=== PATIENT | male | born 1965 | race Asian ===

== ENCOUNTER 2018-08-22 15:05 | Inpatient (IN) | payer OTHER ==
--- NOTE | 2018-08-22 15:17 | EDPHY ---
H & P <Claude Yu - Last Filed: 08/22/18 23:25> Stated Complaint: L hand -4 fingers pain no trauma Source: Patient, Family, Inspector Dials () Exam Limitations: Language barrier - Medical/Surgical History Hx Asthma: No Hx Chronic Respiratory Disease: No Hx Diabetes: No Hx Cardiac Disease: Yes Hx Renal Disease: No Hx Cirrhosis: No Hx Alcoholism: No Hx HIV/AIDS: No Hx Splenectomy or Spleen Trauma: No Other PMH: Heart valve surgery. CVA 2014 - Social History Smoking Status: Never smoked <Henny Lowery - Last Filed: 08/23/18 09:33> Time Seen by Provider: 08/22/18 15:16 HPI/ROS: HPI: This is a 53-year-old male who presents with Chief Complaint: L hand -4 fingers pain no trauma, left leg decreased range of motion Location: Left hand, left leg Quality: Decreased range of motion Duration: Several weeks Signs and Symptoms: No bleeding, + radiation, no numbness, no weakness, no tingling, no incontinence, + decreased range of motion, no swelling, + pain, no fever Timing: Severity: Context: Diagnosed with Parkinson's disease this year and is followed by neurologist at [facility], accompanied by who primarily translates, complains of 1 week history of left hand primarily the index, middle, ring and pinky finger pain that occurs intermittently and is nonradiating in nature. Denies any skin color changes, swelling, decreased range of motion. No trauma. After further questioning, They complain of 1 month history of progressive generalized weakness with poor appetite. Also Complains of left leg weakness which is chronic from a CVA but it has mildly progressed progressed for the last 11 months when he ambulates. Very difficult historian. Complains of mild nonradiating back pain. Denies change in urinary or bladder habits. Denies fever, dysuria, urinary hesitancy. Patient has a history of mechanical mitral valve replacement done in [facility], history of cerebrovascular accident with residual left-sided weakness, upper GI bleed secondary to small pre pyloric ulcer, acute blood-loss anemia. Given his stroke with with mechanical mitral valve he takes Coumadin and INR level was last checked 3 weeks ago. Denies any headaches, vision changes, chest pain, shortness of breath. Modifying Factors: None Comment: ROS: A comprehensive 10 system review of systems is otherwise negative aside from elements mentioned in the history of present illness. MEDICAL/SURGICAL/SOCIAL HISTORY: Medical history: CVA, Parkinson's disease Surgical history: Heart valve surgery Social history: Never smoked. CONSTITUTIONAL: Well-developed, well-nourished, adult male, at bedside, awake and alert, no obvious distress HEENT: Atraumatic and normocephalic, PERRL, EOMI. Nares patent; no rhinorrhea; no nasal mucosal edema. Tympanic membranes clear. Oropharynx clear, no exudate and moist pink mucosa. Airway patent. No lymphadenopathy. No meningismus. Cardiovascular: Normal S1/S2, regular rate, regular rhythm, without murmur rub or gallop. PULMONARY/CHEST: Symmetrical and nontender. Clear to auscultation bilaterally. Good air movement. No accessory muscle usage. ABDOMEN: Soft, nondistended, nontender, no rebound, no guarding, no peritoneal signs, no masses or organomegaly. No CVAT. EXTREMITIES: 2/2 pulses, bilateral human resources benefits coordinator strength 5/5, left hand no deformities , full range of motion of all fingers including DIP, PIP, MCP joints. No Ana's nodules. no clubbing, no cyanosis or edema. 1 patient ambulate NEUROLOGICAL: no focal neuro deficits. GCS 15. Ambulates with the left leg limp. Cranial nerves 2-12 grossly intact. Normal [id number]. SKIN: Warm and dry, no erythema. no rash. Good capillary refill. (Henny Lowery) Constitutional: Initial Vital Signs Temperature (C) 36.7 C 08/22/18 15:10 Heart Rate 65 08/22/18 15:10 Respiratory Rate 16 08/22/18 15:10 Blood Pressure 109/64 08/22/18 15:10 O2 Sat (%) 97 08/22/18 15:10 O2 Delivery Mode Room Air Allergies/Adverse Reactions: No Known Allergies Allergy (Verified 02/13/16 08:55) Home Medications: Medication Instructions Recorded Atorvastatin Calcium [Lipitor 40 40 mg PO DAILY #30 tab 07/16/14 mg (*)] Carbidopa/Levo Cr 50/200Mg 1 tab PO TID 08/22/18 [SINEMET CR 50/200 MG (*)] Trihexyphenidyl HCl 2 mg PO TID 08/22/18 Warfarin Sodium [Coumadin 5MG (*)] 7.5 mg PO DAILY@18 08/22/18 rOPINIRole HCL [Ropinirole HCl] 4 mg PO BID 08/22/18 Medical Decision Making - Diagnostics Imaging: Discussed imaging studies w/ crew caller Radiologist <Claude Yu - Last Filed: 08/22/18 23:25> <Henny Lowery - Last Filed: 08/23/18 09:33> ED Course/Re-evaluation: Vital signs reviewed and stable upon arrival. IV access, laboratory studies, urinalysis, head CT scan, MRI lumbar spine, MRI cervical spine, left hand x-ray ordered Patient will likely require admission for generalized weakness in the setting of Parkinson's disease. 1618: Laboratory studies reviewed. No signs of leukocytosis/anemia/platelet dysfunction/GRACIA/electrolyte imbalance. T bili and unconjugated bili mildly elevated. INR 3.89 1620: Left hand x-ray my read via PACs shows no fracture, dislocation, significant degenerative changes. 1707: Called by radiologist, Dr. Greenberg, who reports MRI lumbar spine shows no significant degenerative disc disease, herniation, facet hypertrophy stenosis. 1723: Called by radiologist, Dr. Pulido, who reports that head CT scan shows no acute intracranial process, mild atrophy seen. ED decision to consult hospitalist for generalized weakness, Parkinson's disease. Urine sample and results pending at time of consult. Dr. Dykes kindly agrees to admit patient and provide further care. Patient would benefit from PT and OT evaluations and possible placement. This patient was seen under the supervision of my secondary supervising physician. I evaluated care for this patient with attending. Discussed this patient with Dr. Yu. (Henny Lowery) Differential Diagnosis: Weakness including but not limited to electrolyte abnormality, depression, anxiety, CVA, spinal cord abnormality, and infectious causes. (Henny Lowery) Other Provider: PHYSICIAN DOCUMENTATION: The patient was evaluated and managed by the Physician General Production Worker and myself. I have reviewed the chart and agree with the findings and plan of care as documented. In addition, I examined the patient myself. History confirmed as from the as worsening dementia with poor memory, difficulty with gait, unsafe to be at home. Physical findings as follows: Patient has good human resources benefits coordinator strength bilaterally. He demonstrates pain in his ring middle and index finger on the left hand but does not have any swelling, has full flexion and extension in that hand. Multiple imaging studies reviewed. Patient has worsening Parkinson's disease and likely needs admission as his is no longer able to care form appropriately at home. Hospitalist admission, may need neurology consultation as an inpatient. I am the secondary supervising physician. (Claude Yu) - Data Points Laboratory Results: Laboratory Results 08/22/18 15:51 08/22/18 15:51 Medications Given: Acetaminophen (Tylenol) 1,000 mg PO Q8H SONDRA Stop: 02/18/19 18:59 Last Admin: 08/23/18 04:27 Dose: 1,000 mg Atorvastatin Calcium (Lipitor) 40 mg PO DAILY SONDRA Stop: 02/19/19 08:59 Last Admin: 08/23/18 08:48 Dose: 40 mg Carbidopa/Levodopa (Sinemet Cr 50/200) 1 tab PO TID SONDRA Stop: 02/18/19 21:59 Last Admin: 08/23/18 08:48 Dose: 1 tab Oxycodone HCl (Oxycodone Ir) 5 - 10 mg PO Q3H PRN PRN Reason: Pain, Severe Able to Take PO Stop: 09/01/18 21:18 Last Admin: 08/22/18 22:34 Dose: 5 mg Ropinirole HCl (Requip) 4 mg PO BID SONDRA Stop: 02/18/19 20:59 Last Admin: 08/23/18 08:46 Dose: 4 mg Tramadol HCl (Ultram) 50 mg PO Q6HRS PRN PRN Reason: Pain, Moderate Able to Take PO Stop: 02/18/19 18:52 Last Admin: 08/22/18 21:06 Dose: 50 mg Trihexyphenidyl HCl (Trihexyphenidyl Hcl) 2 mg PO TID SONDRA Stop: 02/18/19 21:59 Last Admin: 08/23/18 08:47 Dose: 2 mg Discontinued Medications Sodium Chloride (Ns) 1,000 mls @ 0 mls/hr IV ONCE ONE; Wide Open PRN Reason: Protocol Stop: 08/22/18 15:50 Last Admin: 08/22/18 16:17 Dose: 1,000 mls Sodium Chloride (Ns) 500 mls @ 250 mls/hr IV ONCE ONE Stop: 08/23/18 01:12 Last Admin: 08/22/18 23:48 Dose: 500 mls Departure <Claude Yu - Last Filed: 08/22/18 23:25> <Henny Lowery - Last Filed: 08/23/18 09:33> - Departure Disposition: [facility] Inpatient Acute Clinical Impression: Generalized weakness, History of CVA with residual deficit, Weakness of left lower extremity, Chronic anticoagulation, Parkinsons disease, Pain in left hand Condition: Fair
[2018-08-22] MEDS ORDERED: NS 1,000 ML IV ONE (15:49)
[2018-08-22 16:03] LABS: PLATELET COUNT 172 10^3/uL (150-400)
[2018-08-22 16:21] LABS: INR 3.89 (0.83-1.16); PROTIME(PATIENT) 36.1 SEC (12.0-15.0)
[2018-08-22] MEDS ORDERED: HYDROmorphONE/DILAUDID 1 MG/ML INJ IVP PRN (18:51)
[2018-08-22] MEDS ORDERED: ONDANSETRON 4 MG/2 ML VIAL IVP PRN (18:51)
[2018-08-22] MEDS ORDERED: ONDANSETRON DISINTEGRATING 4 MG TAB PO PRN (18:51)
--- NOTE | 2018-08-22 19:57 | PDGENHP ---
<Radha Romero - Last Filed: 08/22/18 20:19> History and Physical - Chief Complaint Hand pain, progressive weakness - History of Present Illness This is a 53-year-old male with new diagnosis in 2017 of Parkinson's with progressive weakness. Primary language is spanish. His primary care doctor is Dr. Peterson and he sees a neurologist at [facility]. is at bedside with the patient. He had a stroke in 2014 with left-sided residual. It was quite difficult to get a clear picture however the patient is presenting today in the emergency room due to a progressive weakness on his left side, pain at noted to his left pointer middle and ring finger as well as left lower extremity weakness that has worsened within the last 2 months. He does ambulate with a left limp He denied chest pain, shortness of breath, nausea, vomiting, fever or chills. Left hand x-ray reveals normal bone no arthropathy or lesion and a minimal soft tissue calcification, a lumbar spine MRI shows no lumbar disc herniations, compression fractures, central canal stenosis or neural foraminal stenosis and lastly a head CT showed no acute intracranial process. He is being admitted for treatment and monitoring. History Information - Allergies/Home Medication List Allergies/Adverse Reactions: No Known Allergies Allergy (Verified 02/13/16 08:55) Home Medications: Carbidopa/Levo Cr 50/200Mg [SINEMET CR 50/200 MG (*)] 1 tab PO TID 08/22/18 [ Last Taken Unknown] Trihexyphenidyl HCl 2 mg PO TID 08/22/18 [Last Taken Unknown] Warfarin Sodium [Coumadin 5MG (*)] 7.5 mg PO DAILY@18 08/22/18 [Last Taken 08/21] rOPINIRole HCL [Ropinirole HCl] 4 mg PO BID 08/22/18 [Last Taken Unknown] I have personally reviewed and updated: family history, medical history, social history, surgical history Past Medical History: Aortic valve defect, chronic anticoagulation, heart murmur , mitral valve disease with [place] chemical valve replaced in the [facility], stroke in 2014 and a gastric ulcer - Surgical History Additional surgical history: Mechanical valve replaced - Family History Additional family history: Cancer, heart disease - Social History Smoking Status: Never smoked Alcohol Use: None Drug Use: None Additional social history: 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 White blood count: 4.59 Hemoglobin hematocrit: 14.3 and 43.4 Platelet count: 172 Sodium: 135 Potassium: 4.2 Chloride: 104 Carbon dioxide: 25 BUN/Cr: 20/0.8 INR: 3.89, therapeutic range for patient is 2.5-3.5 TSH: 1.620 Hand x-ray, lumbar spine MRI, head CT without contrast: Temp Pulse Resp BP Pulse Ox 37.1 C 56 L 18 123/78 H 98 08/22/18 19:20 08/22/18 19:20 08/22/18 19:20 08/22/18 19:20 08/22/18 19:20 Constitutional: uncomfortable Eyes: PERRL, anicteric sclera, EOMI Ears, Nose, Mouth, Throat: moist mucous membranes, hearing normal, ears appear normal, no oral mucosal ulcers Cardiovascular: regular rate and rhythym, no murmur, rub, or gallop, No edema Peripheral Pulses: 2+: dorsalis-pedis (R), dorsalis-pedis (L) Respiratory: no respiratory distress, no rales or rhonchi, clear to auscultation Gastrointestinal: normoactive bowel sounds, soft, non-tender abdomen, no palpable masses Genitourinary: no bladder fullness, no bladder tenderness Skin: warm, normal color, no rashes or abrasions, no fluctuance, no induration, other (Bilateral lower extremities have scratch vanessa, per patient his legs are extremely itchy however they do not look dry), No mottled Musculoskeletal: generalized weakness Neurologic: AAOx3, sensation intact bilaterally, CN II-XII Intact Psychiatric: interacting appropriately, not anxious, not encephalopathic, thought process linear Lymph, Heme, Immunologic: no cervical LAD, no supraclavicular LAD Lab Data & Imaging Review 08/22/18 15:51 08/22/18 15:51 WBC 4.59 10^3/uL (3.80-9.50) 08/22/18 15:51 RBC 4.93 10^6/uL (4.40-6.38) 08/22/18 15:51 Hgb 14.3 g/dL (13.7-17.5) 08/22/18 15:51 Hct 43.4 % (40.0-51.0) 08/22/18 15:51 MCV 88.0 fL (81.5-99.8) 08/22/18 15:51 MCH 29.0 pg (27.9-34.1) 08/22/18 15:51 MCHC 32.9 g/dL (32.4-36.7) 08/22/18 15:51 RDW 15.3 % (11.5-15.2) H 08/22/18 15:51 Plt Count 172 10^3/uL (150-400) 08/22/18 15:51 MPV 10.6 fL (8.7-11.7) 08/22/18 15:51 Neut % (Auto) 60.4 % (39.3-74.2) 08/22/18 15:51 Lymph % (Auto) 26.1 % (15.0-45.0) 08/22/18 15:51 [place] % (Auto) 8.9 % (4.5-13.0) 08/22/18 15:51 Eos % (Auto) 3.5 % (0.6-7.6) 08/22/18 15:51 Baso % (Auto) 0.9 % (0.3-1.7) 08/22/18 15:51 Nucleat RBC Rel Count 0.0 % (0.0-0.2) 08/22/18 15:51 Absolute Neuts (auto) 2.77 10^3/uL (1.70-6.50) 08/22/18 15:51 Absolute Lymphs (auto) 1.20 10^3/uL (1.00-3.00) 08/22/18 15:51 Absolute Monos (auto) 0.41 10^3/uL (0.30-0.80) 08/22/18 15:51 Absolute Eos (auto) 0.16 10^3/uL (0.03-0.40) 08/22/18 15:51 Absolute Basos (auto) 0.04 10^3/uL (0.02-0.10) 08/22/18 15:51 Absolute Nucleated RBC 0.00 10^3/uL (0-0.01) 08/22/18 15:51 Immature Gran % 0.2 % (0.0-1.1) 08/22/18 15:51 Immature Gran # 0.01 10^3/uL (0.00-0.10) 08/22/18 15:51 PT 36.1 SEC (12.0-15.0) H 08/22/18 15:51 INR 3.89 (0.83-1.16) H 08/22/18 15:51 APTT 53.9 SEC (23.0-38.0) H 08/22/18 15:51 Sodium 135 mEq/L (135-145) 08/22/18 15:51 Potassium 4.2 mEq/L (3.5-5.2) 08/22/18 15:51 Chloride 104 mEq/L (97-110) 08/22/18 15:51 Carbon Dioxide 25 mEq/l (22-31) 08/22/18 15:51 Anion Gap 6 mEq/L (6-14) 08/22/18 15:51 BUN 20 mg/dL (7-23) 08/22/18 15:51 Creatinine 0.8 mg/dL (0.7-1.3) 08/22/18 15:51 Estimated GFR > 60 08/22/18 15:51 Glucose 101 mg/dL (70-100) H 08/22/18 15:51 Calcium 8.8 mg/dL (8.5-10.4) 08/22/18 15:51 Magnesium 1.9 mg/dL (1.6-2.3) 08/22/18 15:51 Total Bilirubin 2.4 mg/dL (0.1-1.4) H 08/22/18 15:51 Conjugated Bilirubin 0.2 mg/dL (0.0-0.5) 08/22/18 15:51 Unconjugated Bilirubin 2.2 mg/dL (0.0-1.1) H 08/22/18 15:51 AST 56 IU/L (17-59) 08/22/18 15:51 ALT 21 IU/L (21-72) 08/22/18 15:51 Alkaline Phosphatase 40 IU/L (38-126) 08/22/18 15:51 Total Protein 6.5 g/dL (6.3-8.2) 08/22/18 15:51 Albumin 3.9 g/dL (3.5-5.0) 08/22/18 15:51 TSH 1.620 uIU/mL (0.465-4.680) 08/22/18 15:51 Assessment & Plan Plan: This is a 53-year-old male who suffered a cerebral vascular accident in 2014 with left-sided residual weakness, newly diagnosed Parkinson's in 2017 and is medicated, and a mitral valve disease status post mechanical valve replaced while in [facility] and is anticoagulated with warfarin. His vital signs are the following: Blood pressure 123/78, heart rate 56, respiration 18, 98% on room air, 37.1 temperature #Chronic anticoagulation (Acute) #History of CVA with residual deficit (Acute) #Pain in left hand (Acute) #Parkinsons disease (Acute) #Weakness (Acute) #Weakness of left lower extremity (Acute) Plan: -Urinalysis pending -Physical therapy and occupational therapy to evaluate and treat patient -Check INR in the morning; therapeutic range for patient is 2.5-3.5, he is scheduled for warfarin tomorrow evening -Pain management p.o. p.r.n. -Continue home medications of atorvastatin, Sinemet, ropinirole, trihexyphenidyl Diet: Regular Code: Full VTE ppx: Warfarin, SCDs Dispo: Admit to inpatient, most likely needing rehabilitation after hospitalization <Kadie Dykes - Last Filed: 08/22/18 22:22> History and Physical - History of Present Illness Review of Systems Review of Systems: Physical Exam Physical Exam: Temp Pulse Resp BP Pulse Ox 37.1 C 56 L 18 123/78 H 98 08/22/18 19:20 08/22/18 19:20 08/22/18 19:20 08/22/18 19:20 08/22/18 19:20 Lab Data & Imaging Review 08/22/18 15:51 08/22/18 15:51 WBC 4.59 10^3/uL (3.80-9.50) 08/22/18 15:51 RBC 4.93 10^6/uL (4.40-6.38) 08/22/18 15:51 Hgb 14.3 g/dL (13.7-17.5) 08/22/18 15:51 Hct 43.4 % (40.0-51.0) 08/22/18 15:51 MCV 88.0 fL (81.5-99.8) 08/22/18 15:51 MCH 29.0 pg (27.9-34.1) 08/22/18 15:51 MCHC 32.9 g/dL (32.4-36.7) 08/22/18 15:51 RDW 15.3 % (11.5-15.2) H 08/22/18 15:51 Plt Count 172 10^3/uL (150-400) 08/22/18 15:51 MPV 10.6 fL (8.7-11.7) 08/22/18 15:51 Neut % (Auto) 60.4 % (39.3-74.2) 08/22/18 15:51 Lymph % (Auto) 26.1 % (15.0-45.0) 08/22/18 15:51 [place] % (Auto) 8.9 % (4.5-13.0) 08/22/18 15:51 Eos % (Auto) 3.5 % (0.6-7.6) 08/22/18 15:51 Baso % (Auto) 0.9 % (0.3-1.7) 08/22/18 15:51 Nucleat RBC Rel Count 0.0 % (0.0-0.2) 08/22/18 15:51 Absolute Neuts (auto) 2.77 10^3/uL (1.70-6.50) 08/22/18 15:51 Absolute Lymphs (auto) 1.20 10^3/uL (1.00-3.00) 08/22/18 15:51 Absolute Monos (auto) 0.41 10^3/uL (0.30-0.80) 08/22/18 15:51 Absolute Eos (auto) 0.16 10^3/uL (0.03-0.40) 08/22/18 15:51 Absolute Basos (auto) 0.04 10^3/uL (0.02-0.10) 08/22/18 15:51 Absolute Nucleated RBC 0.00 10^3/uL (0-0.01) 08/22/18 15:51 Immature Gran % 0.2 % (0.0-1.1) 08/22/18 15:51 Immature Gran # 0.01 10^3/uL (0.00-0.10) 08/22/18 15:51 PT 36.1 SEC (12.0-15.0) H 08/22/18 15:51 INR 3.89 (0.83-1.16) H 08/22/18 15:51 APTT 53.9 SEC (23.0-38.0) H 08/22/18 15:51 Sodium 135 mEq/L (135-145) 08/22/18 15:51 Potassium 4.2 mEq/L (3.5-5.2) 08/22/18 15:51 Chloride 104 mEq/L (97-110) 08/22/18 15:51 Carbon Dioxide 25 mEq/l (22-31) 08/22/18 15:51 Anion Gap 6 mEq/L (6-14) 08/22/18 15:51 BUN 20 mg/dL (7-23) 08/22/18 15:51 Creatinine 0.8 mg/dL (0.7-1.3) 08/22/18 15:51 Estimated GFR > 60 08/22/18 15:51 Glucose 101 mg/dL (70-100) H 08/22/18 15:51 Calcium 8.8 mg/dL (8.5-10.4) 08/22/18 15:51 Magnesium 1.9 mg/dL (1.6-2.3) 08/22/18 15:51 Total Bilirubin 2.4 mg/dL (0.1-1.4) H 08/22/18 15:51 Conjugated Bilirubin 0.2 mg/dL (0.0-0.5) 08/22/18 15:51 Unconjugated Bilirubin 2.2 mg/dL (0.0-1.1) H 08/22/18 15:51 AST 56 IU/L (17-59) 08/22/18 15:51 ALT 21 IU/L (21-72) 08/22/18 15:51 Alkaline Phosphatase 40 IU/L (38-126) 08/22/18 15:51 Total Protein 6.5 g/dL (6.3-8.2) 08/22/18 15:51 Albumin 3.9 g/dL (3.5-5.0) 08/22/18 15:51 TSH 1.620 uIU/mL (0.465-4.680) 08/22/18 15:51 Assessment & Plan Assessment: Chronic anticoagulation (Acute) History of CVA with residual deficit (Acute) Pain in left hand (Acute) Parkinsons disease (Acute) Weakness (Acute) Weakness of left lower extremity (Acute) Plan: Patient seen independently and care plan reviewed with MISAEL Romero, please see separate note for further details.
[2018-08-22] MEDS: ACETAMINOPHEN 325 MG TAB PO SCH (21:03)
[2018-08-22] MEDS: CARBIDOPA/LEVO CR 50 MG/200 MG TAB PO SCH (21:05)
[2018-08-22] MEDS: traMADol 50 MG TAB PO PRN (21:06)
[2018-08-22] MEDS: TRIHEXYPHENIDYL HCL 2 MG TAB PO SCH (21:06)
[2018-08-22] MEDS ORDERED: oxyCODONE IR 5 MG TAB PO PRN (21:19)
[2018-08-22] MEDS ORDERED: HYDROCODONE/APAP 5/325 TAB PO PRN (21:19)
--- NOTE | 2018-08-22 22:09 | HOSPPROG ---
Hospitalist Progress Note Assessment/Plan: 53 yo Cypriot speaking man with hx of Parkinson's disease followed at [facility] movement d/o neurology as well as prior CVA with residual left sided weakness, VHD s/p mechanical mitral and aortic valves also followed at [facility] for that presenting with various complaints including increased weakness particularly involving the left side, worsening pain in the left hand and concern that he is no longer safe at home. Patient also noted to be quite confused even with the help of lapeler and this does not appear to be at baseline. # progressive weakness/gait instability: reviewed [facility] Neuro reports, this has been an issue for some time it sounds like and has been felt to be due primarily to PD, component of chronic left sided weakness due to old CVA. Unclear that any of this is new reviewing old reports. Head CT negative, lumbar MRI performed also negative. Will get pt/ot to evaluate in am and will ask neuro to see in am as well. Will get brain MRI for further evaluation, per cardiology note "ok to have MRI with 1.5 Yvette magnet" # left hand pain: in review of neuro notes this has also been present for some time and attributed to dystonia related to PD, does seem to be progressive however. XRAy of the hand personally reviewed and unremarkable. above # PD: idiopathic, dx 2 years ago, some mention of consideration for DBS per neuro notes, continue op meds, seems to be progressive as above # toxic metabolic encephalopathy: per review of old notes does not appear that confusion has been present, however today patient stating he has been here in the hospital since yesterday, states he has not talked to any doctors or TOOL PROCUREMENT COORDINATOR's despite having spoken to at least 2 prior to myself. Will monitor, possibly some level of progressive dementia, will need further confirmation from family regarding baseline # VHD: [facility], currently on warfarin with goal of 2.5-3.5, slightly over goal, will ask pharmacy to manage # CVA: with residual left sided weakness particularly involving the LLE, as above, head ct negative, brain mri pending as above # hx of GI bleed/PUD # IP status, patient no longer safe to be at home independently, will need > 48 hours for eval/mgmt and consideration of placement Patient new to my care. Old records reviewed and summarized as above. Care plan reviewed with ER doctor and MISAEL Romero, please see her separate documentation for further details, patient interviewed with help of [facility] official court interpreter via official court interpreter line. Objective: Vital Signs Temp Pulse Resp BP Pulse Ox 37.1 C 56 L 18 123/78 H 98 08/22/18 19:20 08/22/18 19:20 08/22/18 19:20 08/22/18 19:20 08/22/18 19:20 08/21/18 08/22/18 08/23/18 05:59 05:59 05:59 Intake Total 1000 Balance 1000 PT 36.1 SEC (12.0-15.0) H 08/22/18 15:51 INR 3.89 (0.83-1.16) H 08/22/18 15:51 ICD10 Worksheet Patient Problems: Problems Problem Status Onset Chronic anticoagulation Acute History of CVA with residual deficit Acute Pain in left hand Acute Parkinsons disease Acute Weakness Acute Weakness of left lower extremity Acute CVA (cerebral infarction) Acute Gastrointestinal bleeding Acute Vertigo Acute
[2018-08-22] MEDS ORDERED: NS 500 ML IV ONE (23:13)
[2018-08-23] MEDS: ACETAMINOPHEN 325 MG TAB PO SCH ×3 (04:27→15:18)
[2018-08-23 05:40] LABS: INR 4.61 (0.83-1.16); PROTIME(PATIENT) 41.1 SEC (12.0-15.0)
--- NOTE | 2018-08-23 07:08 | HOSPPROG ---
Hospitalist Progress Note Assessment/Plan: Hospitalist Night Float Note Notified by RN that patient with development of bradycardia in to the 30s. Patient denies lightheadedness, chest pain, palpitations, SOB. telemetry and EKG obtained showing a 2nd degree AV Block mobitz type I with increasingly prolonged pauses. Patient will be transferred to SDU for closer monitoring, pacer pads. cardiology consult pending. Discussed plan with the patient via secondary education professor. He notes he is asymptomatic even going to the bathroom and is focused on addressing his upper and lower extremity weakness he presented with. Advised that it is still being evaluated but primary focus at very moment is to ensure stability of his heart. [facility] notified of transfer request. Objective: Vital Signs Temp Pulse Resp BP Pulse Ox 36.4 C 49 L 16 96/66 L 97 08/23/18 04:19 08/23/18 04:31 08/23/18 04:31 08/23/18 04:31 08/23/18 04:31 08/22/18 08/23/18 08/24/18 05:59 05:59 05:59 Intake Total 2000 Output Total 700 Balance 1300 PT 41.1 SEC (12.0-15.0) H 08/23/18 04:17 INR 4.61 (0.83-1.16) H 08/23/18 04:17 ICD10 Worksheet Patient Problems: Problems Problem Status Onset Chronic anticoagulation Acute History of CVA with residual deficit Acute Pain in left hand Acute Parkinsons disease Acute Weakness Acute Weakness of left lower extremity Acute CVA (cerebral infarction) Acute Gastrointestinal bleeding Acute Vertigo Acute
--- NOTE | 2018-08-23 08:31 | HOSPPROG ---
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 He was found to be bradycardic. #Bradycardia: Tele reveals 2nd degree mobitz type 1 with roughly 2 second pauses. Asymptomatic. No offending meds. - Check troponin, TTE - D/w cardiology who will see #Subjective weakness/gait instability: Not weak on my exam today, suspect r/t parkinson's. He complains of left leg weakness; his stroke was in left MCA territory in 2014 so this wound not explain symptoms. - MRI brain ordered (his valves are reportedly compatible) - Neurology consulted - PT/OT #Hand pain: No tenosynovitis on exam. X-ray unremarkable - Check ESR #H/o mechanical aortic and mitral valve replacements: Not in heart failure - INR supratherapeutic (goal 2.5-3.5), will hold today's dose, appreciate pharmacy assistance #Acute metabolic encephalopathy: Resolved this morning. #PD: Idiopathic, diagnosed 2 years ago. Some consideration for DBS per outpt neuro notes. Continue home meds. #CVA: Presented w/right sided sxs. Left MCA territory abnormality on CT, didn't have MRI. His symptoms resolved prior to hospital discharge per notes. - Continue statin. Previously on aspirin (in addition to AC) but developed GI bleed so this was stopped. #H/o GI bleed 2/2 PUD: H/H normal. VTE ppx: therapeutic anticoagulation Code: full Dispo: Remain inpatient Subjective: Left and right finger pain. Also reporting left leg weakness. No chest pain/tightness, dizziness, or syncope. helped translate. Objective: Vital Signs Temp Pulse Resp BP Pulse Ox 36.4 C 48 L 12 106/70 97 08/23/18 07:26 08/23/18 07:26 08/23/18 07:26 08/23/18 07:26 08/23/18 07:26 08/22/18 08/23/18 08/24/18 05:59 05:59 05:59 Intake Total 2000 Output Total 700 Balance 1300 PT 41.1 SEC (12.0-15.0) H 08/23/18 04:17 INR 4.61 (0.83-1.16) H 08/23/18 04:17 - Physical Exam Constitutional: no apparent distress, appears nourished, not in pain Eyes: PERRL, anicteric sclera, EOMI Ears, Nose, Mouth, Throat: moist mucous membranes, hearing normal, ears appear normal, no oral mucosal ulcers Cardiovascular: systolic murmur, bradycardia, No JVD, No edema Respiratory: no respiratory distress, no rales or rhonchi, clear to auscultation Gastrointestinal: normoactive bowel sounds, soft, non-tender abdomen, no palpable masses Genitourinary: no bladder fullness, no bladder tenderness, no renal bruits Skin: no rashes or abrasions, no fluctuance, no induration Musculoskeletal: full muscle strength, no muscle tenderness, normal joint ROM, other (no synovitis in either hand or wrist; difficulty grasping with left hand due to pain) Neurologic: AAOx3, CN II-XII Intact Psychiatric: interacting appropriately ICD10 Worksheet Patient Problems: Problems Problem Status Onset Chronic anticoagulation Acute History of CVA with residual deficit Acute Pain in left hand Acute Parkinsons disease Acute Weakness Acute Weakness of left lower extremity Acute CVA (cerebral infarction) Acute Gastrointestinal bleeding Acute Vertigo Acute
--- NOTE | 2018-08-23 08:42 | CPEKG ---
Test Reason : bradycardia Blood Pressure : / mmHG Vent. Rate : 047 BPM Atrial Rate : 047 BPM P-R Int : 368 ms QRS Dur : 098 ms QT Int : 473 ms P-R-T Axes : -71 009 043 degrees QTc Int : 419 ms Sinus or ectopic atrial bradycardia Prolonged WI interval Probable left ventricular hypertrophy ST elev, probable normal early repol pattern When compared with ECG of 02/13/2016 at 9:52 a.m. WI interval is longer. Slight change in P-wave mor phology. Heart rate slower. Confirmed by Gladys Leonardo ([id number]) on 08/23/2018 8:41:57 AM Referred By: Kadie Dykes Confirmed By:Gladys Leonardo
[2018-08-23] MEDS: TRIHEXYPHENIDYL HCL 2 MG TAB PO SCH ×3 (08:47→21:13)
[2018-08-23] MEDS: ATORVASTATIN CALCIUM 40 MG TAB PO SCH (08:48)
[2018-08-23] MEDS: CARBIDOPA/LEVO CR 50 MG/200 MG TAB PO SCH ×3 (08:48→21:13)
--- NOTE | 2018-08-23 09:50 | NEUROPROG ---
Assessment: [id number] - Neurology Consult: - CC: Dr. Dykes (hospitalist) consulted neurology for weakness. Results placed in EMR for her review. - HPI: 08/23/18: Pt from [facility] with PMHx of Parkinsons disease since 2016, valvular heart disease with mechanical valve on anticoagulation, and prior stroke in 2014 presented to [facility] ER on 08/22/18 complaining of left hand pain and a sense of slowly progressive left sided weakness for months. He has a movement disorder neurologist at [facility] that manages his neurologic conditions. He had a stroke in 2014 with residual left sided weakness. Pt reported for last 2 months he has noted progressive left sided weakness and left finger pain. Left hand x-ray normal, lumbar MRI unremarkable, and head CT unremarkable. Pt also noted to also possibly be confused at times although there is a language barrier complicating assessment. Hospitalist review of neurology movement disorder records find most of these complaints to likely be chronic. Pt also developed bradycardia so cardiology was consulted as well. Neurologic exam showed subtle left leg weakness and ataxia that pt reported was from prior stroke. Agree with plan to obtain brain MRI to ensure no acute changes. If no acute changes noted than continue current neurology medications, obtain PT/OT evaluation, and have pt continue to work with outpatient movement disorder neurologist as he is doing. - PMHx: Parkinsons Disease, valvular heart disease with mechanical valve on chronic anticoagulation with warfarin, stroke 2015, gastric ulcer - Home Meds: sinemet CR 50/200 TID, trihexyphenidyl, warfarin, ropinirole 4 mg bid , - SHx: no tobacco FHx: cancer, heart disease - ROS: Pt denied acute fever, total vision loss, active severe chest pain, respiratory failure, total body severe rash, total bowel/bladder incontinence, psychosis, active seizures, or active bleeding - O: VS reviewed General: Alert Eyes: Fundoscopic exam not able to visualize optic disks CV: Heart RRR, no murmur, no carotid bruit Lungs: Clear to auscultation bilaterally, no rhonchi or rales Neuro: - Mental: . Oriented x person/place/date . concentration appears normal . speech fluency/comprehension normal . memory appears normal . fund of knowledge appear intact - Cranial Nerves: . II: PERRL, VFFTC . III/IV/: EOMI, no nystagmus, normal smooth pursuits, no Ptosis . V: facial sensation intact to LT . VII: face symmetric to eye closure and smile . VIII: hearing intact to conversation . IX/X: uvula raises symmetrically . XI: SCM 5/5 B/L strength . XII: tongue protrudes midline w/nl strength - Motor: . Tone: normal tone in all 4 extremity . Strength: no pronator drift, strength 5/5 throughout but some slight left leg weakness was present - Reflexes: B/L bic 2/4 - Sensory: all 4 extremity intact to light touch but pt says left foot is slightly less due to prior stroke - Coord: slight ataxia in left leg likely due to underlying weakness - Gait: deferred - Labs: 08/22/18- CBC wnl, INR 3.89H PT 36.1H, CMP Gluc 101 Tot Bili 2.4 Unconj Bili 2.2H , TSH wnl - Rads: 08/22/18- Head CT wo: no acute intracranial process (I personally visualized the images on 08/23/18) 08/22/18- Lumbar MRI wo: No lumbar disk herniations, compression fractures, central canal stenosis, or neural foraminal stenosis. No significant degenerative changes. - Assessment: 1. Stroke in 2015 with residual left sided weakness 2. Valvular heart disease with mechanical valve on chronic anticoagulation 3. Parkinsons Disease since 2016: managed by movement disorder expert in [facility] 4. Left hand pain 5. Bradycardia: cardiology consulted 6. Possible Confusion: Likely due to underlying medical issues and language barrier, there does not appear to be any significant delirium present - Plan: - Agree with plan to obtain brain MRI wo, if no acute changes noted then recommend supportive care and f/u with outpatient movement disorder expert for continued care - PT/OT - If MRI shows no acute changes neurology will sign off Objective: Vital Signs Temp Pulse Resp BP Pulse Ox 36.4 C 48 L 12 106/70 97 08/23/18 07:26 08/23/18 07:26 08/23/18 07:26 08/23/18 07:26 08/23/18 07:26 Laboratory Results 08/23/18 08:43 08/22/18 08/23/18 08/24/18 05:59 05:59 05:59 Intake Total 2000 Output Total 700 Balance 1300 PT 41.1 SEC (12.0-15.0) H 08/23/18 04:17 INR 4.61 (0.83-1.16) H 08/23/18 04:17 Allergies/Adverse Reactions: No Known Allergies Allergy (Verified 02/13/16 08:55)
--- NOTE | 2018-08-23 11:30 | ASMTCMCOM ---
CM Note CM Note Notes: Reviewed chart, pt admitted to hospital for L hand and L leg weakness, previous hx of stroke. Recently diagnosed with Parkinsons. Pt lives at home with , dc needs uncertain, PT/OT to eval. DC Plan: TBD Date Signed: 08/23/2018 11:29 AM Electronically Signed By:Shantal Quintero RN
--- NOTE | 2018-08-23 13:01 | ECHO ---
[email or web address] [address] [address] Main: [phone] Echocardiography Examination Transthoracic Name: ALMA HUBBARD MR#: [id number] Study Date: 08/23/2018 Study Time: 11:54 AM Date of : 1965 Age: 53 year(s) Height: 152.4 cm (60 in.) Weight: 67.13 kg (148 lb.) BSA: 1.64 m2 Gender: Male Examination: Echo Contrast: Image Quality: Rhythm: Normal sinus rhythm Heart Rate: 51 bpm BP: 108 mmHg/72 mmHg Indication: Bradycardia, Hx of Mechanical Aortic and Mitral Valve Procedure Staff Referring Physician: Easement Man: Kyree Lawson RDCS Reading Physician: Ming Addison MD Requesting Provider: Ordering Physician: Julián Mike Indication: Bradycardia, Hx of Mechanical Aortic and Mitral Valve Measurements Chambers AV/MV Label Value Normal Value Label Value Normal Value LVOT Vmax 0.6 m/s (0.7m/s - 1.1m/s) AV PGmax 38 mmHg LVOTd 2.2 cm (1.9cm - 2.1cm) AV PGmean 23 mmHg LVOT VTI 17.2 cm (18cm - 22cm) AV Vmax 3.09 m/s LVDd, MM 4.2 cm (4.2cm - 5.9cm) WANG (Vmax) 0.7 cm2 LVDd, 2D 4.5 cm (4.2cm - 5.9cm) WANG (VTI) 0.9 cm2 LVDs, MM 2.5 cm (2cm - 3.8cm) MV E Vmax 1.6 m/s LVDs, 2D 3 cm (2.1cm - 4cm) MV A Vmax 0.88 m/s IVSd, MM 1.1 cm (0.6cm - 0.9cm) MV E/A 1.82 IVSd, 2D 0.9 cm (0.6cm - 1.1cm) MV E/E' lateral 41 LVPWd, MM 1.4 cm (0.6cm - 1cm) MV E/E' septal 42.1 (0.5 - 1.7) LVPWd, 2D 0.8 cm (0.6cm - 1cm) MV E' septal 0.04 m/s LVEF, 2D 60 % (54% - 74%) MV PGmax 10 mmHg LVOT PGmean 1 mmHg MV PGmean 3 mmHg LVOT Vmean 0.48 m/s MV PHT 0.8 s Additional Vessels MVA PHT 0.3 cm2 Label Value Normal Value MV E' lateral 0.04 m/s AoAsc 3.2 cm MV E/E' mean 40 AoRoot, MM 2.8 cm (2.2cm - 3.7cm) MV E' mean 0.04 m/s TV/PV Patient: ALMA HUBBARD Study Date: 08/23/2018 Page 1 of 3 11:54 AM Label Value Normal Value RA Pressure 5 mmHg RVSP 24 mmHg TR Pmax 19 mmHg TR Vmax 2.19 m/s PV PGmax 2 mmHg PV Vmax, Caliper 0.71 m/s (0.6m/s - 0.9m/s) Conclusions Left Ventricle: Left ventricle is normal in size. Normal global systolic left ventricular function. EF range is estimated at 70 % - 75 %. Right Ventricle: Right ventricular systolic function is normal. Mitral Valve: A tilting disc mechanical prosthesis is present in the mitral valve. The mitral valve prosthesis exhibits normal function. Aortic Valve: The aortic valve is a tilting disc prosthesis. Normal functioning aortic valve prosthesis. Tricuspid Valve: Right Ventricular systolic pressure is measured at 24 mmHg. Pulmonary artery pressure normal. Findings Left Ventricle: Left ventricle is normal in size. Normal global systolic left ventricular function. EF range is estimated at 70 % - 75 %. Left ventricle wall thickness is normal. Right Ventricle: Normal size right ventricle. Right ventricular systolic function is normal. Left Atrium: The left atrium is normal in size. Right Atrium: The right atrium is normal in size. Mitral Valve: A tilting disc mechanical prosthesis is present in the mitral valve. The mitral valve prosthesis exhibits normal function. No prosthesis stenosis. Aortic Valve: The aortic valve is a tilting disc prosthesis. Normal functioning aortic valve prosthesis. No prosthesis stenosis. Tricuspid Valve: Tricuspid valve leaflets are structurally normal. Trivial tricuspid regurgitation. Right Ventricular systolic pressure is measured at 24 mmHg. Pulmonary artery pressure normal. Pulmonic Valve: Pulmonic leaflets are normal in appearance and function. No pulmonic valve regurgitation is evident. Aorta: The aorta is normal. The aortic root size in M-mode measures 2.8 cm. The ascending aorta measures 3.2 cm. Aorta Measurements Patient: ALMA HUBBARD Study Date: 08/23/2018 Page 2 of 3 11:54 AM AoRoot, MM is 2.8 cm. Pericardium: The previous exam of from 02/14/16 indicated that the mechanical valves in the aortic and mitral positions were Luciano-Shivey type. If clinically indicated perform RUBEN to evaluate the mechanical valves.. No pericardial effusion. Exam Details Procedure Ordered: Echo (No Signature Object) Patient: ALMA HUBBARD Study Date: 08/23/2018 Page 3 of 3 11:54 AM [id number]
[2018-08-23] MEDS: traMADol 50 MG TAB PO PRN (16:41)
[2018-08-23] MEDS ORDERED: WARFARIN SODIUM 5 MG TAB PO SCH (18:00)
--- NOTE | 2018-08-23 18:34 | CPEKG ---
Test Reason : Blood Pressure : / mmHG Vent. Rate : 047 BPM Atrial Rate : 047 BPM P-R Int : 368 ms QRS Dur : 098 ms QT Int : 473 ms P-R-T Axes : -71 009 043 degrees QTc Int : 419 ms Sinus or ectopic atrial bradycardia Prolonged RI interval Probable left ventricular hypertrophy ST elev, probable normal early repol pattern Confirmed by Gladys Leonardo ([id number]) on 08/23/2018 6:33:30 PM Referred By: Kadie Dykes Confirmed By:Gladys Leonardo
--- NOTE | 2018-08-23 20:15 | GCON ---
[f rep st] CONSULTATION CARDIOLOGY CONSULTATION DATE OF CONSULTATION: 08/23/2018 PRIMARY CARE PHYSICIAN/CHIEF DIGITAL MEDIA OFFICER: Dr. Natalya Peterson. REASON FOR CONSULTATION: We were asked by Dr. Mike to evaluate the patient for his rhythm. HISTORY OF PRESENT ILLNESS: The patient is a 53-year-old male with a past medical history significan t for aortic and mitral valve replacement replacements with mechanical valves 22 years ago, CVA in , and new diagnosis of Parkinson's in 2016. He presents to [facility] with 2 weeks o f worsening weakness in his left hand and left lower extremity. He denies any chest pain, dyspnea, PND, orthopnea, palpitations, presyncope, syncope. MEDICATIONS: His outpatient medications include Sinemet, ropinirole, trihexyphenidyl, atorvastatin, and warfarin. ALLERGIES: No known drug allergies. SOCIAL HISTORY: Patient is a never smoker. Never drinker. He is . FAMILY HISTORY: Mother at age 73 and did have some heart disease. He has brothers and sisters who are in good health. PAST SURGICAL HISTORY: He had aortic and mitral valve replacements with mechanical valves. PAST MEDICAL HISTORY: 1. New diagnosis of Parkinson disease. 2. Valvular heart disease. 3. History of gastric ulcer. 4. History of CVA. REVIEW OF SYSTEMS: As per HPI. A complete 10-point review of systems was obtained and is negative e xcept for what is dictated. PHYSICAL EXAMINATION: VITAL SIGNS: BP of 100/70, heart rate of 55, respirations 21, O2 saturation 9 6% on room air, temp of 97.4 degrees Fahrenheit. GENERAL: He is a very pleasant male in no apparent distress. HEENT: Normocephalic, atraumatic. Eyes are without scleral icterus. HEART: Regular ra te and rhythm with crisp mechanical sounds and a 2 to 3/6 systolic ejection murmur. LUNGS: Clear. ABDOMEN: Soft. : No Bender. SKIN: Warm and dry. PSYCH: Normal mood and affect. NEURO: Appea rs to be oriented. We are assisted by gas load dispatcher via iPad. I have spoken to Dr. Mike about patient's care. LABORATORY DATA: CBC shows WBC 4.59, hemoglobin 14.3, hematocrit 43.4, platelet count 172. BMP was sodium 135, potassium 4.2, chloride 104, CO2 25, BUN 20, creatinine 0.8, glucose 101, TSH 1.6. A 12- lead ECG personally interpreted demonstrates sinus versus ectopic atrial bradycardia with a very prol onged AL interval, ST-elevation which is probably early repolarization. 08/23/2018 echocardiogram sh ows EF of 70% to 75% percent. There is a tilting disk mechanical prosthesis in the mitral valve posi tion with normal function. There is an aortic valve tilting disk prosthesis. RVSP is 24 mmHg. Tele metry was reviewed. IMPRESSION AND PLAN: The patient presents with weakness. He has been noted to have Mobitz type 1 bl ock on telemetry. He has no symptoms suggestive of angina. There are no identifiable medications th at would cause this. We will defer further testing at this time. We will follow along with patient' s telemetry. /[id number]/MODL
--- NOTE | 2018-08-23 22:01 | PDMN ---
Medical Necessity Medical necessity: Pt meets inpt criteria per MD order and MCG M-510 Supraventricular arrhythmias, persistent bradycardia (HR 40's-50's)beyond obs car tx, 2nd degree mobitz type 1 on tele w/ roughly 2 sec pauses. 53 y/o w/hx Parkinson's, VHD s/p mech mitral and aortic valves on warfarin, prior CVA presented w/worsening gen weakness/gait instability and vague hand pain, cont to have L and R finger pain as well as L leg weakness. Cardiology consult and neuro consult, anticipate>2MN for ongoing eval/management of above.
--- NOTE | 2018-08-24 00:55 | NEUROPROG ---
Assessment: Brain MRI showed no acute changes, no further inpt neurologic w/u needed, see prior neurology note for full recs, neurology will sign off Objective: Vital Signs Temp Pulse Resp BP Pulse Ox 36.6 C 53 L 12 94/59 L 94 08/23/18 22:42 08/23/18 22:42 08/23/18 22:42 08/23/18 22:42 08/23/18 22:42 Laboratory Results 08/23/18 08:43 08/22/18 08/23/18 08/24/18 05:59 05:59 05:59 Intake Total 2000 250 Output Total 700 Balance 1300 250 PT 41.1 SEC (12.0-15.0) H 08/23/18 04:17 INR 4.61 (0.83-1.16) H 08/23/18 04:17 Allergies/Adverse Reactions: No Known Allergies Allergy (Verified 02/13/16 08:55)
[2018-08-24 05:36] LABS: INR 2.99 (0.83-1.16); PROTIME(PATIENT) 29.5 SEC (12.0-15.0)
[2018-08-24] MEDS: ACETAMINOPHEN 325 MG TAB PO SCH ×2 (05:41→11:37)
[2018-08-24] MEDS: ATORVASTATIN CALCIUM 40 MG TAB PO SCH (08:52)
--- NOTE | 2018-08-24 09:43 | PDDCSUM ---
Discharge Summary Discharge Summary: Date of Admission: 08/22/2018 Date of Discharge: 08/24/2018 Consultants: cardiology, neurology Studies: TTE, brain MRI, lumbar spine MRI Discharge Diagnoses: 1. Left leg weakness, chronic 2. Hand pain/numbness 3. Bradycardia with 2nd degree mobitz type 1 heart block 4. VHD s/p mechanical mitral and aortic valves on warfarin (goal INR 2.5-3.5) 5. Prior ischemic CVA (likely embolic from valves) 6. Parkinson's disease, followed by movement specialist at [facility] 7. H/o GI bleed 2/2 PUD 8. 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 Per review of notes in [facility], these have been chronic complaints. Neurology was consulted. An MRI of his brain did not show acute stroke but it did reveal an old small right thalamic infarct (possibly explaining his left leg weakness) and small left parietal infarct. Neurology did not feel that any additional inpatient work up was warranted. An x-ray of his hand was unremarkable as were inflammatory markers. I suspect he is having neuropathic pain vs focal dystonia of his hand related to his parkinson's. He was started on gabapentin. PT recommended outpatient therapy and I provided him with a prescription for this. OT cleared him for home. He was noted to be bradycardic with 2nd degree mobitz type 1 heart block. Serial troponins were negative. TTE was unremarkable (normal LVEF, normal mechanical valves). Cardiology was consulted and he was provided with a ZIO device prior to discharge. His INR was 2.99 on day of discharge. He was encouraged to continue with regular INR checks with goal 2.5-3.5. The patient's noted to me at time of discharge that he has lost approximately 15 pounds over the last few weeks. This was not extensively worked up in the hospital but I encouraged to him to discuss with his PCP. Medications: Please refer to EMR for complete list. I wrote a prescription for gabapentin 100mg TID. Otherwise no changes. Follow Up Plan: 1. PCP visit on 09/03 to discuss weight loss, assess response to gabapentin 2. Neurology visit at [facility] 3. Routine INR checks as he's been doing Physical Exam: Vitals reviewed, mildly bradycardic with type 1 2nd degree AV block. Alert and oriented, rrr with murmur, lungs clear, abdomen soft and nt, no leg edema or jvd, subjective left hand weakness.
[2018-08-24] MEDS: CARBIDOPA/LEVO CR 50 MG/200 MG TAB PO SCH (10:08)
[2018-08-24] MEDS: TRIHEXYPHENIDYL HCL 2 MG TAB PO SCH (10:08)
[2018-08-24] MEDS: traMADol 50 MG TAB PO PRN (10:17)
--- NOTE | 2018-08-24 10:22 | ASDISCHSUM ---
Discharge Information Plan Status:Home with No Needs Medically Cleared to Leave:08/24/2018 Discharge Date:08/24/2018 CM D/C Disposition:Home, Routine, Self-Care ADT D/C Disposition:Home, Routine, Self-Care Projected Discharge Date:08/24/2018 Transportation at D/C:Family Discharge Delay Reason: Follow-Up Date:08/24/2018 Discharge Slot: Final Diagnosis: Placement Information Patient Contact Information Contact Name:ALY Relationship: Address:[address] [place] [address] City:[place] Alternate Phone: [facility]/Zip Code:[place] [address] Email: Financial Information Financial Class:[facility] Primary Plan Desc:[facility] Primary Plan Number:[id number] Secondary Plan Desc: Secondary Plan Number: Assessment Information LACE LACE Length of stay for Answers: 1 day current admission Acuity / Level of Answers: Yes Care: Did the patient have an inpatient admission? Comorbidities - select Answers: Cerebrovascular disease all that apply (CVA, TIA, aneurysms, vasc ular dementia) Other Notes: Parkinson's disease # of Emergency department Answers: 1-2 visits in the last 6 months Score: 7 Date Signed: 08/24/2018 10:21 AM Electronically Signed By:Lizzie Abdi RN [facility] CM Progress Note CM Note CM Note Notes: Reviewed chart, pt admitted to hospital for L hand and L leg weakness, previous hx of stroke. Recently diagnosed with Parkinsons. Pt lives at home with , dc needs uncertain, PT/OT to eval. DC Plan: TBD Date Signed: 08/23/2018 11:29 AM Electronically Signed By:Shantal Quintero RN Case Management Discharge Plan Note Case Management Discharge Discharge Order Complete? Answers: Yes Patient to Obtain Answers: via Family Medications Discharge Comments Notes: 08/24/2018 Case Management Note Discussed w/PT. PT recommending outpatient PT follow up. OT cleared pt to go home. There are no further case management d/c needs identified. Case Management d/c poc: independent with follow up as directed. Date Signed: 08/24/2018 10:20 AM Electronically Signed By:Lizzie Abdi RN Intervention Information
[2018-08-24 13:26] VITALS: BP 124/75
== END 2018-08-24 12:01 | disposition home or self-care (01) | DRG 57 ==
LOC: F3N 18:30 → F2N 08-23 10:20 → F2W 08-23 21:30
PROVIDERS: ADMIT Internal Medicine; ATTEND Internal Medicine
DX: G20 Parkinson's disease (principal); M25.542 Pain in joints of left hand; I44.1 Atrioventricular block, second degree; I69.354 Hemiplegia and hemiparesis following cerebral infarction affecting left non-dominant side; R53.1 Weakness; R63.4 Abnormal weight loss; Z95.2 Presence of prosthetic heart valve; Z79.01 Long term (current) use of anticoagulants
CPT/HCPCS: 70551-PN; 97116-GP; 97161-GP; 97165-GO; J1170